=== PATIENT | male | born 1980 | race Caucasian/White ===

== ENCOUNTER 2017-03-10 17:12 | Day surgery (SDC) | payer SELFPAY, MEDICAID ==
[2017-03-10] MEDS: ONDANSETRON 4MG/2ML VIAL (J2405) IV (18:28)
[2017-03-10] MEDS: MORPHINE 4 MG/ML 1ML SYRINGE IV ×2 (18:29→20:31)
[2017-03-10] MEDS: CLINDAMYCIN 600 MG in APPROPRIATE DILUENT 1 EA IV (18:29)
[2017-03-10 18:30] LABS: BASO % 0.1 % (0.0-1.0); EOS # 0.1 10^3/uL (0.0-0.50); EOS % 0.8 % (0.0-3.0); HEMATOCRIT 39.9 % (42.0-52.0); HEMOGLOBIN 13.8 g/dl (14.0-18.0); IMMATURE GRANULOCYTE % 0.2 % (0-0); LYMPH # 1.1 10^3/uL (1.5-4.5); LYMPH % 12.8 % (24.0-44.0); MEAN CORPUSCULAR HEMOGLOBIN 29.6 pg (27.0-33.0); MEAN CORPUSCULAR HGB CONC 34.6 g/dl (32.0-36.5); MEAN CORPUSCULAR VOLUME 85.4 fl (80.0-96.0); MONO # 0.9 10^3/uL (0.0-0.8); MONO % 10.9 % (0.0-5.0); NEUTROPHILS # 6.3 10^3/uL (1.8-7.7); NEUTROPHILS % 75.2 % (36.0-66.0); PLATELET COUNT, AUTOMATED 239 10^3/uL (150-450); RED BLOOD COUNT 4.67 10^6/uL (4.30-6.10); RED CELL DISTRIBUTION WIDTH 12.2 % (11.5-14.5); WHITE BLOOD COUNT 8.4 10^3/uL (4.0-10.0)
[2017-03-10] MEDS: ADACEL/BOOSTRIX VACCINE (DIPHTH/PERTUSS/ACELL/TETANUS)0.5ML SYR (90715) IM (18:30)
[2017-03-10 18:53] LABS: ANION GAP 3 MEQ/L (8-16); BLOOD UREA NITROGEN 22 MG/DL (7-18); CALCIUM LEVEL 9.3 MG/DL (8.5-10.1); CARBON DIOXIDE LEVEL 33 MEQ/L (21-32); CHLORIDE LEVEL 103 MEQ/L (98-107); CREATININE FOR GFR 0.81 MG/DL (0.70-1.30); GLOMERULAR FILTRATION RATE > 60.0 (>60); GLUCOSE, FASTING 136 MG/DL (70-100); POTASSIUM SERUM 3.5 MEQ/L (3.5-5.1); SODIUM LEVEL 139 MEQ/L (136-145)
[2017-03-10] MEDS: TETRACAINE 0.5% OPHTH SOLN 4ML OS (19:00)
[2017-03-10] MEDS: FLUORESCEIN OPHTH 1 MG STRIP OS (19:00)
[2017-03-10] MEDS: PHENYLEPHRINE 2.5% OPHTH SOL 2ML OS (19:00)
[2017-03-10] MEDS: TROPICAMIDE 1% OPHTH SOLN 2ML OS (19:00)
[2017-03-10] MEDS ORDERED: MORPHINE 4 MG/ML 1ML SYRINGE As Ordered (19:29)
[2017-03-10] MEDS ORDERED: ROCURONIUM BROMIDE 50 MG/5 ML VIAL As Ordered (22:55)
[2017-03-10] MEDS ORDERED: PROPOFOL 200 MG/20 ML VIAL As Ordered (22:55)
[2017-03-10] MEDS ORDERED: LIDOCAINE 2% INJ 100 MG/5 ML SDV (FOR ANES.) As Ordered (22:55)
[2017-03-10] MEDS ORDERED: fentaNYL 250 MCG/5 ML INJECTION (J3010) As Ordered (22:55)
[2017-03-10] MEDS ORDERED: MIDAZOLAM INJ 2 MG/2 ML VIAL (J2250) As Ordered (22:56)
[2017-03-10] MEDS: CLINDAMYCIN 600 MG/50 ML PREMIX BAG As Ordered (23:27)
[2017-03-10] MEDS ORDERED: GLYCOPYRROLATE INJ 0.2 MG/ML 2 ML VIAL As Ordered ×2 (23:40)
[2017-03-10] MEDS ORDERED: NEOSTIGMINE 10 MG/10 ML VIAL (J2710) As Ordered (23:40)
[2017-03-10] MEDS ORDERED: ONDANSETRON 4MG/2ML VIAL (J2405) As Ordered (23:40)
[2017-03-11] MEDS ORDERED: HYDROCORTISONE INJ 250 MG VIAL (J1720) As Ordered (00:25)
[2017-03-11] MEDS ORDERED: MAXITROL OPHTH OINT 3.5 GM As Ordered ×2 (00:27→00:28)
[2017-03-11] MEDS ORDERED: fentaNYL 100 MCG/2 ML INJECTION (J3010) As Ordered (02:01)
[2017-03-11] MEDS: fentaNYL 100 MCG/2 ML INJECTION (J3010) IV ×4 (02:08→02:24)
[2017-03-11] MEDS ORDERED: MORPHINE 10 MG/ML 1ML VIAL IV (02:15)
[2017-03-11] MEDS ORDERED: LR 1,000 ML IV (02:15)
[2017-03-11] MEDS ORDERED: ONDANSETRON 4MG/2ML VIAL (J2405) IV (02:15)
== END 2017-03-11 04:00 | disposition home or self-care (01) ==
LOC: M PED 03-11 02:46 → M SDC 03-11 04:00 → M ED 17:12 → M SDC 19:35
DX: S01.81XA Laceration without foreign body of other part of head, initial encounter (principal); S01.112A Laceration without foreign body of left eyelid and periocular area, initial encounter; S01.412A Laceration without foreign body of left cheek and temporomandibular area, initial encounter; W29.3XXA Contact with powered garden and outdoor hand tools and machinery, initial encounter; Y93.89 Activity, other specified; Y92.89 Other specified places as the place of occurrence of the external cause; Y99.8 Other external cause status; Z72.0 Tobacco use
CPT/HCPCS: 13152

== ENCOUNTER 2018-02-11 20:45 | Emergency (ER) | payer SELFPAY ==
[~2018-02-11] VITALS: Ht 167.6 cm; Wt 61.4 kg
[~2018-02-11 20:45] MED LIST: IBUP1TAB7 PO; IBUP800T OR; [UNRECOGNIZED DRUG - OTHER] PO
[2018-02-11] MEDS ORDERED: PERCOCET 5MG/325MG TAB PO ONE (21:45)
[2018-02-11] MEDS ORDERED: CLINDAMYCIN 300 MG in APPROPRIATE DILUENT 1 EA IV ONE (22:30)
[2018-02-11] MEDS ORDERED: LIDOCAINE 2% MDV 20 ML VIAL SC ONE (22:30)
[2018-02-12] MEDS ORDERED: PERC5TAB12 PO (00:13)
[2018-02-12] MEDS ORDERED: CLEO300C2 PO (00:13)
[2018-02-12 00:25] VITALS: BP 121/75
[2018-02-12] MEDS ORDERED: OXYCODONE/APAP 5MG/325MG(BULK FOR ED) 1 TABLET PO ONE (00:30)
--- NOTE | 2018-02-12 07:45 | REP ---
Clinical: Trauma. Laceration. Technique: AP, lateral, bilateral oblique views of the left second digit. Findings: Comminuted fracture of the terminal tuft with overlying soft tissue swelling and laceration noted. No obvious foreign body. Impression: Comminuted fracture of the terminal tuft with laceration. Electronically Signed by Andres Oakley MD 02/12/2018 07:37 A
== END 2018-02-12 00:39 | disposition home or self-care (01) ==
LOC: M ED 20:45
DX: S68.621A Partial traumatic transphalangeal amputation of left index finger, initial encounter (principal); S62.601A Fracture of unspecified phalanx of left index finger, initial encounter for closed fracture; W27.0XXA Contact with workbench tool, initial encounter; Y92.018 Other place in single-family (private) house as the place of occurrence of the external cause; Z88.0 Allergy status to penicillin; Z88.1 Allergy status to other antibiotic agents; Z88.5 Allergy status to narcotic agent; F17.210 Nicotine dependence, cigarettes, uncomplicated

== ENCOUNTER 2020-06-24 18:53 | Emergency (ER) | payer OTHER, SELFPAY ==
[~2020-06-24] VITALS: Ht 170.2 cm; Wt 63.6 kg
[~2020-06-24 18:53] MED LIST changes: +CLEO300C2 PO; +PERC5TAB12 PO
[2020-06-24 20:40] VITALS: BP 117/57
[2020-06-24 21:05] LABS: RSV AMPLIFICATION NEGATIVE (NEGATIVE)
--- NOTE | 2020-06-24 21:07 | REPVR ---
PROCEDURE INFORMATION: Exam: XR Orbits Exam date and time: 06/24/2020 7:48 PM Age: 39 years old Clinical indication: Injury or trauma; Other: Not specified; Puncture; Ocular (eye or eyeball); Right; With residual foreign body; Injury date: Today; Injury details: PT states he believes he has a staple in RT eye; Additional info: Rule out fb TECHNIQUE: Imaging protocol: XR of the orbits. Views: Minimum of 4 views COMPARISON: No relevant prior studies available. FINDINGS: Orbits: There is a 4 mm linear metallic foreign body in the anterior central right orbit. No other foreign bodies are seen. Sinuses: Clear. No opacification. Bones/joints: No acute fracture. Soft tissues: Unremarkable. IMPRESSION: 4 mm linear metallic foreign body in the anterior central right orbit. Electronically signed by: Yonathan Soto On 06/24/2020 21:06:54 PM
== END 2020-06-24 20:44 | disposition short-term general hospital (02) ==
LOC: M ED 18:53
DX: T15.01XA Foreign body in cornea, right eye, initial encounter (principal); W26.8XXA Contact with other sharp object(s), not elsewhere classified, initial encounter; Y92.019 Unspecified place in single-family (private) house as the place of occurrence of the external cause; Y93.89 Activity, other specified; Y99.9 Unspecified external cause status; F17.200 Nicotine dependence, unspecified, uncomplicated; Z88.0 Allergy status to penicillin